=== PATIENT | male | born 1965 | race African-American/Black ===

== ENCOUNTER 2022-07-23 03:04 | Emergency (ER) | payer SELFPAY ==
[~2022-07-23] VITALS: Ht 182.9 cm; Wt 90.7 kg
--- NOTE | 2022-07-23 03:10 | NUR ---
MILO 89 FROM HOME C/O OVERDOSE, PER PT, HE SMOKED SOME WEED. PT A/OX2. TOLERATING R/A WITH NO RESP DISTRESS. CONNECTED PT TO POX AND MONITOR. SAFETY MEASURES IN PLACE.
--- NOTE | 2022-07-23 03:17 | NUR ---
[facility] AT PT'S BEDSIDE
[2022-07-23] MEDS ORDERED: NALO4SPR BNOSTRILS (05:13)
--- NOTE | 2022-07-23 05:16 | NUR ---
Patient discharged to home in stable condition. Written and verbal after care instructions given. Patient verbalizes understanding of instruction. pt ambulatory with a steady gait
[2022-07-23 05:17] VITALS: BP 138/72
== END 2022-07-23 05:17 | disposition home or self-care (01) ==
LOC: ER 03:06
DX: T40.601A Poisoning by unspecified narcotics, accidental (unintentional), initial encounter (principal); E78.00 Pure hypercholesterolemia, unspecified; Z88.0 Allergy status to penicillin; Z60.2 Problems related to living alone; Y92.89 Other specified places as the place of occurrence of the external cause